=== PATIENT | female | born 1985 | race African-American/Black ===

== ENCOUNTER 2018-02-13 21:44 | Emergency (ER) | payer OTHER ==
[~2018-02-13] VITALS: Ht 165.1 cm; Wt 93.0 kg
[~2018-02-13 21:44] MED LIST: DOK100 MG PO; MOTRIN 800MG T800 MG PO; PERCOCET 325 MG1 TA2 PO; TRANDATE-NORMO200 MG PO
--- NOTE | 2018-02-13 22:01 | ED GENERAL ADULT ---
History of Present Illness General Chief Complaint: General Adult Stated Complaint: DIZZY, BLURRY VISION, LEFT SHOULDER PAIN, X 1 WEEK Source: patient Exam Limitations: no limitations Vital Signs & Intake/Output Vital Signs & Intake/Output Vital Signs Date Time Temp Pulse Resp B/P B/P Pulse O2 O2 Flow FiO2 Mean Ox Delivery Rate 02/132 Room Air 02/13 2241 98.3 02/14 2152 98.3 81 18 128/84 98 Room Air Allergies Coded Allergies: NO KNOWN ALLERGIES (03/03/12) Reconcile Medications Docusate Sodium (Colace) 100 MG SGL 100 MG PO AT BEDTIME PRN STOOL SOFTENER Labetalol (Trandate-Normodyne 200MG Tab) 200 MG TAB 200 MG PO 0430,1630 hypertension OXYCODONE HCL/ACETAMINOPHEN (Percocet 5-325 MG Tablet) 325 MG/5 MG TAB 1 TAB PO Q4P PRN PAIN SCALE 7-8 Yibuprofen (Motrin 800MG Tab) 800 MG TAB 800 MG PO Q6P PRN PAIN Triage Note: PT FROM HOME C/O LEFT ARM/SHOULDER PAIN X1 WEEK. PT STATES "MY LEFT ARM FEELS LIKE I PULLED A MUSCLE" PT STATES CP INTERMITTENTLY "BUT I DONT REAlLY KEEP TRACK OF THEM" PT DENIES SOB, JAW OR BACK PAIN, BILATERAL ARM NUMBNESS.TINGLING. PT STATES EVEN MY LEFT LEG IS SORE. PT IS - ON NIH STROKE SCALE. VSS. Triage Nurses Notes Reviewed? yes Onset: Gradual Duration: week(s):, waxing and waning Timing: recent history Injury Environment: home Severity: mild Modifying Factors: Improves With: rest. Worsens With: movement. Associated Symptoms: left foot pain, dizziness, left shoulder pain : No Patient currently breastfeeds: No HPI: 32 yo woman in prior good health, on no meds, presents with 2 week history of left shoulder, left chest discomfort, worse with palpation and movement, intermittent, without syncopal symptoms, diaphoresis, abdominal pain, dysuria. She shares that she also has pain at the bottom of her left foot when she first wakes up in the morning, "but then it gets better during the day." No worsening symptoms tonight. "My aunt told me to come in and get checked out... I could have diabetes or something." She is otherwise well. Past History Travel History Traveled to [place] past 21 day No Medical History Any Pertinent Medical History? see below for history Neurological: NONE EENT: NONE Cardiovascular: NONE Respiratory: NONE Gastrointestinal: NONE Hepatic: NONE Renal: NONE Musculoskeletal: NONE Psychiatric: NONE Endocrine: Insulin resistance [employer] LAUNDRY/Reproductive: HSV Surgical History Surgical History: , N Psychosocial History What is your primary language Vietnamese Tobacco Use: Never used Family History Hx Contributory? No Review of Systems Review of Systems Constitutional: Reports: no symptoms. EENTM: Reports: no symptoms. Respiratory: Reports: no symptoms. Cardiovascular: Reports: no symptoms. GI: Reports: no symptoms. Genitourinary: Reports: no symptoms. Musculoskeletal: Reports: no symptoms. Skin: Reports: no symptoms. Neurological/Psychological: Reports: no symptoms. Hematologic/Endocrine: Reports: no symptoms. Immunologic/Allergic: Reports: no symptoms. All Other Systems: Reviewed and Negative Physical Exam Physical Exam General Appearance: well developed/nourished, no apparent distress Head: atraumatic, normal appearance Eyes: Bilateral: normal appearance, PERRL, EOMI. Ears, Nose, Throat: normal pharynx, normal ENT inspection Neck: normal inspection, supple, full range of motion Respiratory: normal breath sounds, no respiratory distress, quiet respiration, lungs clear, left sided chest wall tenderness to palpation. Cardiovascular: regular rate/rhythm Gastrointestinal: normal bowel sounds, soft, non-tender, no organomegaly Back: normal inspection, normal range of motion, muscle spasm, no vertebral tenderness Extremities: normal inspection, normal capillary refill, normal range of motion, no edema, mild tenderness to palpation on plantar aspect of left foot. , negative pain elicited with left rotator cuff maneuvers Core Measures ACS in differential dx? No CVA/TIA Diagnosis: No Sepsis Present: No Sepsis Focused Exam Completed? No Progress Differential Diagnoses I considered the following diagnoses in my evaluation of the patient: musculoskelal pain vs other. Plan of Care: Orders Procedure Date/time Status TROPONIN LEVEL 02/13 2210 Complete HEPATIC FUNCTION PANEL 02/13 2210 Complete HUMAN BETA HCG SCREEN 02/13 2210 Complete D-DIMER 02/13 2210 Complete CBC WITHOUT DIFFERENTIAL 02/13 2210 Complete BASIC METABOLIC PANEL 02/13 2210 Complete EKG 02/13 2210 Active Laboratory Tests 02/13/182217: Anion Gap 12, Estimated GFR > 60, BUN/Creatinine Ratio 24.0, Glucose 100 H, Calcium 9.2, Total Bilirubin 0.5, Direct Bilirubin 0.4, AST 31, ALT 46, Alkaline Phosphatase 82, Troponin I < 0.01, Total Protein 7.4, Albumin 4.5, Total Beta HCG NEGATIVE, D-Dimer High Sensitivty < 200, CBC w Diff NO MAN DIFF REQ, RBC 4.65, MCV 78.4 L, MCH 26.5 L, MCHC 33.8, RDW 14.4, MPV 8.1, Gran % 46.7, Lymphocytes % 46.1, Monocytes % 5.5, Eosinophils % 1.3, Basophils % 0.4, Absolute Granulocytes 3.6, Absolute Lymphocytes 3.6 H, Absolute Monocytes 0.4, Absolute Eosinophils 0.1, Absolute Basophils 0 Diagnostic Imaging: Viewed by Me: Radiology Read. Discussed w/RAD: Radiology Read. CXR Impression: PATIENT: TERESA MAYA PRESENT AGE: 32 PATIENT ACCOUNT NO: [id number] : 85 LOCATION: [facility] ORDERING PHYSICIAN: Navarro Betancourt MD SERVICE DATE: 02/13/18 EXAM TYPE: RAD - XRY- PORTABLE CHEST XRAY EXAMINATION: XR PORTABLE CHEST CLINICAL INFORMATION: Chest pain COMPARISON: 01/18/2013 TECHNIQUE: Portable frontal view of the chest was obtained. FINDINGS: The lungs are clear with no focal consolidation. No evidence of pneumothorax, pulmonary edema, or pleural effusions. The cardiomediastinal silhouette is unremarkable. No acute osseous findings. IMPRESSION: No acute cardiopulmonary findings. DICTATED BY: Hugh Arguello MD DATE/TIME DICTATED:2323 [employer]EL[employer]ORK COORDINATOR:GEOVANNA DATE/TIME TRANSCRIBED:02/13/182323 CONFIDENTIAL, DO NOT COPY WITHOUT APPROPRIATE AUTHORIZATION. <Electronically signed in Other Vendor System> SIGNED BY: Hugh Arguello MD 02/13/18 1299 Initial ED EKG: normal axis, normal intervals, normal p-waves, normal QRS complex, normal sinus rhythm Departure Departure Disposition: HOME OR SELF CARE Condition: Stable Clinical Impression Primary Impression: Musculoskeletal pain Secondary Impressions: Dizziness, Plantar fasciitis of left foot Departure Forms: Customer Survey General Discharge Information Comments 02/13/18, 23:43... pt feeling well, benign labs/cxr/ekg... pt safe for discharge. Critical Care Note Critical Care Note Critical Care Time: non-applicable
[2018-02-13 22:32] LABS: ABSOLUTE BASOPHIL COUNT 0 /CUMM (0.0-0.2); ABSOLUTE EOSINOPHIL COUNT 0.1 /CUMM (0.0-0.7); ABSOLUTE GRANULOCYTE CT 3.6 /CUMM (1.4-6.5); ABSOLUTE LYMPH COUNT 3.6 /CUMM (1.2-3.4); ABSOLUTE MONOCYTE COUNT 0.4 /CUMM (0.10-0.60); BASOPHIL % 0.4 % (0.0-2.0); EOSINOPHIL % 1.3 % (0-5); GRANULOCYTE % 46.7 % (42.2-75.2); HEMATOCRIT 36.4 % (37-47); MEAN CORPUSCULAR HGB 26.5 PG (27.0-31.0); MEAN CORPUSCULAR HGB CONC 33.8 G/DL (33.0-37.0); MEAN CORPUSCULAR VOLUME 78.4 FL (81.0-99.0); MEAN PLATELET VOLUME 8.1 FL (7.4-10.4); PLATELET COUNT 300 /CUMM (130-400); RBC DISTRIBUTION WIDTH 14.4 % (11.5-14.5); RED BLOOD CELL CT 4.65 /CUMM (4.20-5.40); WHITE BLOOD CELL COUNT 7.8 /CUMM (4.8-10.8)
--- NOTE | 2018-02-13 23:31 | RADIOLOGY REPORT ---
EXAMINATION: XR PORTABLE CHEST CLINICAL INFORMATION: Chest pain COMPARISON: 01/18/2013 TECHNIQUE: Portable frontal view of the chest was obtained. FINDINGS: The lungs are clear with no focal consolidation. No evidence of pneumothorax, pulmonary edema, or pleural effusions. The cardiomediastinal silhouette is unremarkable. No acute osseous findings. IMPRESSION: No acute cardiopulmonary findings.
[2018-02-13 23:47] VITALS: BP 121/76
== END 2018-02-13 23:50 ==
LOC: ERH 21:44
PROVIDERS: Pediatrics
DX: M72.2 Plantar fascial fibromatosis (principal); R42 Dizziness and giddiness
CPT/HCPCS: 71045; 93005; 93010